=== PATIENT | male | born 1970 | race Two or more races ===

== ENCOUNTER 2017-04-20 05:07 | Inpatient (IN) | payer OTHER ==
[~2017-04-20] VITALS: Ht 157.5 cm; Wt 99.8 kg
[2017-04-20] VITALS (17 sets, daily range): BP systolic 117–143; BP diastolic 78–94
[~2017-04-20 05:07] MED LIST: TRAMADOL HCL50 MG ORAL
[2017-04-20] MEDS ORDERED: Thrombin 5000 units TOPIC ONE (06:26)
[2017-04-20] MEDS ORDERED: Bacitracin 50000 Units Vial ONE (06:27)
[2017-04-20] MEDS ORDERED: Vancomycin 1gm inj IVPB ONE (06:27)
[2017-04-20] MEDS ORDERED: Bupivacaine 0.5% Inj 30 ml vial INJ ONE (06:27)
[2017-04-20] MEDS ORDERED: Surgicel 4in x 8in TOPIC ONE (06:28)
[2017-04-20] MEDS ORDERED: fentaNYL 100 mcg/2 mL IV ONE (07:00)
[2017-04-20] MEDS ORDERED: NS Irrig 1000ml ONE (07:00)
[2017-04-20] MEDS ORDERED: Propofol 200mg/20ml IV ONE (07:00)
[2017-04-20] MEDS ORDERED: Succinylcholine 20mg/ml 10ml vial ONE (07:00)
[2017-04-20] MEDS ORDERED: LR 1000ml ONE (07:00)
[2017-04-20] MEDS ORDERED: ceFAZolin sod 2 GM in D5W 110 ML IVPB ONE (07:00)
[2017-04-20] MEDS ORDERED: Sterile Water Irrig 1000ml IRRIG ONE (07:00)
[2017-04-20] MEDS ORDERED: Nimbex 2mg/ml Inj 10ML IVP ONE (07:00)
[2017-04-20] MEDS ORDERED: Midazolam 2mg/2ml Inj ONE (07:00)
--- NOTE | 2017-04-20 07:16 | Pre-Procedure Note/Attestation ---
Pre-Procedure Note/Attestation Complete Prior to Procedure Planned Procedure: not applicable Procedure Narrative: Cervical 56 Artificial disc replacement Cervical 67 Anterior cervical discectomy and fusion Indications for Procedure Pre-Operative Diagnosis: Cervical herniation of 56,67 Attestation I attest that I discussed the nature of the procedure; its benefits; risks and complications; and alternatives (and the risks and benefits of such alternatives ), prior to the procedure, with the patient (or the patient's legal health and safety representative). I attest that, if there was a reasonable possibility of needing a blood transfusion, the patient (or the patient's legal health and safety representative) was given the [facility] standardized written summary, pursuant to the [place] Blood Safety Act ([place] Health and Safety Code # 1645, as amended). I attest that I re-evaluated the patient just prior to the surgery and that there has been no change in the patient's H&P, except as documented below: SHEYLA LINK Apr 20, 2017 07:16
[2017-04-20] MEDS ORDERED: NS w/KCl 20mEq 1,000 ML IV SCH (07:17)
--- NOTE | 2017-04-20 07:17 | Brief Operative Note ---
Immediate Post Operative Note Operative Note Chief Complaint: Neck pain and right sided radiculopathy Pre-op Diagnosis: Cervical herniation of 56,67 Procedure: Unable to obtain intubation as a result of swelling , and multiple attempts case will be rescheduled with fiberoptic intubation Post-op Diagnosis: same as pre-op Findings: consistent w/pre-op dx studies, other - Unable to obtain intubation as a result of swelling , and multiple attempts case will be rescheduled with fiberoptic intubation Surgeon: Concepcion Supervisor Canvas Products: Elenita Anesthesiologist: Danii Anesthesia: general Specimen: none Complications: none Condition: stable Fluids: IV Estimated Blood Loss: minimal Drains: none Implant(s) used?: SHEYLA Byrd Apr 20, 2017 07:17
[2017-04-20] MEDS ORDERED: HYDROmorphone 1mg/ml Carpuject IVP PRN (07:30)
[2017-04-20] MEDS ORDERED: Norco 5mg/325mg tab ORAL PRN ×2 (07:30→13:30)
[2017-04-20] MEDS ORDERED: Milk of Magnesia 30ml Ud ORAL PRN (07:30)
[2017-04-20] MEDS ORDERED: HYDROcodone/Acetamin 7.5/325 tab ORAL PRN ×2 (07:30)
[2017-04-20] MEDS ORDERED: Naloxone 0.4mg/ml Inj IVP PRN (07:30)
[2017-04-20] MEDS ORDERED: HYDROmorphone 1mg/ml Carpuject SUBQ PRN ×2 (07:30→13:30)
[2017-04-20] MEDS ORDERED: Chloraseptic Spray 20mL Bottle ORAL PRN (07:30)
[2017-04-20] MEDS ORDERED: Docusate 100mg cap ORAL SCH (09:00)
--- NOTE | 2017-04-20 09:04 | Anethesia Preoperative Eval ---
Anesthesia Pre-op PMH/ROS General Date of Evaluation: Apr 20, 2017 Time of Evaluation: 06:55 Anesthesiologist: Trista ASA Score: ASA 3 Mallampati Score Class I : Soft palate, uvula, fauces, pillars visible Class II: Soft palate, uvula, fauces visible Class III: Soft palate, base of uvula visible Class IV: Only hard plate visible Mallampati Classification: Class IV Surgeon: Concepcion Diagnosis: Cervical radiculopathy Surgical Procedure: ACDF Anesthesia History: none Social History: smoking - h/o Family History: no anesthesia problems Allergies: Coded Allergies: Shrimp (Verified Allergy, Intermediate, 04/19/17) SKIN RASH Uncoded Allergies: CRABS (Allergy, Intermediate, 04/19/17) SKIN RASH Past Medical History Cardiovascular: Reports: HTN - borderline, Denies: CAD, MA, valve dz, arrhythmia, other Pulmonary: Reports: IFEANYI, Denies: asthma, COPD, other Gastrointestinal/Genitourinary: Reports: GERD, Denies: CRI, ESRD, other Neurologic/Psychiatric: Reports: other - chronic pain, Denies: dementia, CVA, depression/anxiety, TIA Endocrine: Denies: DM, hypothyroidism, steroids, other HEENT: Denies: cataract (L), cataract (R), glaucoma, [place] (L), [place] (R), other Hematology/Immune: Denies: anemia, DVT, bleeding disorder, other Musculoskeletal/Integumentary: Denies: OA, RA, DJD, DDD, edema, other Other: obesity PMH Narrative: as above PSxH Narrative: lumbar spine, some procedure on anterior chest wall and neck resulted in severe keloid scarring. Anesthesia Pre-op Phys. Exam Physician Exam Last Vital Signs Date Time Temp Pulse Resp B/P (MAP) Pulse Ox O2 Delivery O2 Flow Rate FiO2 04/20/17 08:55 85 19 125/87 95 Room Air 04/20/17 08:35 6.0 04/20/17 08:06 98.2 Constitutional: NAD Neurologic: CN 2-12 intact Cardiovascular: RRR, no M/R/G Respiratory: CTA Gastrointestinal: S/NT/ND Airway Exam Mallampati Score: Class IV - only hard palate MO: limited - extrimely limited one finger Neck: short stiff ROM: limited Teeth: missing Dentures: no upper, no lower Anesthesia Pre-op A/P Labs see chart Studies Pre-op Studies: EKG - NSR, CXR - WNL, echo - EF 55-60%, PFTS - Normal Risk Assessment & Plan Assessment: ASA 3 Plan: GA with ETT possibility of difficult airways, neuromonitoring Status Change Before Surgery: No Pre-Antibiotics Drug: Ancef 2gr. Given Within 1 Hr of Incision: Yes Time Given: 07:25 RAMYA VAUGHAN M.D. Apr 20, 2017 09:04
--- NOTE | 2017-04-20 11:19 | Immediate Post-Op Evaluation ---
Immediate Post-Op Evalulation Immediate Post-Op Evalulation Procedure: Planned ACDF Date of Evaluation: Apr 20, 2017 Time of Evaluation: 08:10 IV Fluids: 1000 Blood Products: none Estimated Blood Loss: min Urinary Output: none Blood Pressure Systolic: 118 Blood Pressure Diastolic: 64 Pulse Rate: 86 Respiratory Rate: 22 O2 Sat by Pulse Oximetry: 98 Temperature (Fahrenheit): 97.6 Pain Score (1-10): 2 Nausea: No Vomiting: No Complications Postinduction cancelation of surgery difficult airway hard to ventilate cannot intubate situation.Unable to ventilate with oral airway glydescope with Sucs paralysis grade 4 view epiglottis only attempt to place a tube no CO2 return esophageal, tube out ventilation with 32 nasal airway successful but with significant nasal bleeding saturation stable bleeding stopped with nasal packing and phenyephrin. Patient returned to spontaneous breathing, discussed with surgeon decision - unsafe to proceed case canceled for the day. Patient to PACU in stable condition. Patient Status: reacts, patent, none Hydration Status: adequate RAMYA VAUGHAN M.D. Apr 20, 2017 11:19
--- NOTE | 2017-04-20 11:21 | 48 Hour Post Anesthesia Eval ---
Post Anesthesia Evaluation Procedure: Planned ACDF Date of Evaluation: Apr 20, 2017 Time of Evaluation: 11:20 Blood Pressure Systolic: 128 0: 76 Pulse Rate: 74 Respiratory Rate: 22 Temperature (Fahrenheit): 97.6 O2 Sat by Pulse Oximetry: 98 Airway: patent Nausea: No Vomiting: No Pain Intensity: 1 Hydration Status: adequate Cardiopulmonary Status: stable Mental Status/LOC: patient returned to baseline Follow-up Care/Observations: n/a Post-Anesthesia Complications: see immediate postop evaluation Follow-up care needed: ready to discharge RAMYA VAUGHAN M.D. Apr 20, 2017 11:21
[2017-04-20] MEDS ORDERED: Dexamethasone 4mg/ml vial IVP SCH (12:00)
--- NOTE | 2017-04-20 12:32 | Operative Note - Dictated ---
DATE OF OPERATION: 04/20/2017 SURGEON: German Javier M.D. PREOPERATIVE DIAGNOSIS: C5-C6, C6-C7 disk herniation persistent radiculopathy, right-sided arm pain. DESCRIPTION OF PROCEDURE: This is a 46-year-old male who has herniations and radiculopathy stemming from a recent injury. Today, he was brought to [facility] where we attempted intubation of the cervical spine, however, due to his significant swelling, the procedure had to be aborted and it will be rescheduled for another day. Details from anesthesia standpoint will be documented in the anesthesiologist's note. At this point, his rescheduled surgery will have to be performed with fiberoptic intubation the anesthesia details which will be documented in the anesthesiologist's note. German Javier M.D. DR: Devonte JOB#: [id number] CC: MAGDALENA
[2017-04-20] MEDS ORDERED: Tylenol #3 tab (300mg/30mg) ORAL PRN (13:30)
[2017-04-20] MEDS ORDERED: D5 1/2NS 1,000 ML IV SCH (13:30)
[2017-04-20] MEDS ORDERED: ceFAZolin sod 1 GM in D5W 55 ML IV SCH (14:00)
[2017-04-27] MEDS ORDERED: Lidocaine 4% Amp INJ ONE (20:00)
[2017-04-30] VITALS (16 sets, daily range): BP systolic 119–152; BP diastolic 74–94
[2017-04-30] MEDS ORDERED: MEDROL DOSEPAK4 MG ORAL (06:03)
[2017-04-30] MEDS ORDERED: Lidocaine 2% 20mg/ml/EPI 0.01mg/ml 20ml ONE (06:53)
[2017-04-30] MEDS ORDERED: Cocaine HCl 4% 4ml vial TOPIC ONE (06:53)
[2017-04-30] MEDS ORDERED: Lidocaine 2% MPF 5ml Vial INJ ONE (06:57)
[2017-04-30] MEDS ORDERED: Vancomycin 1gm inj IVPB ONE (06:57)
[2017-04-30] MEDS ORDERED: Thrombin 5000 units TOPIC ONE ×2 (06:57→09:24)
[2017-04-30] MEDS ORDERED: Surgicel 4in x 8in TOPIC ONE (06:57)
[2017-04-30] MEDS ORDERED: Bacitracin 50000 Units Vial ONE (06:58)
[2017-04-30] MEDS ORDERED: NS Irrig 1000ml ONE (07:00)
[2017-04-30] MEDS ORDERED: ceFAZolin sod 1 GM in D5W 55 ML IVPB SCH (07:00)
[2017-04-30] MEDS ORDERED: Dexamethasone 4mg/ml vial ONE (07:00)
[2017-04-30] MEDS ORDERED: Sterile Water Irrig 1000ml IRRIG ONE (07:00)
[2017-04-30] MEDS ORDERED: Glycopyrrolate 0.2mg/ml 1ml Vial ONE (07:00)
[2017-04-30] MEDS ORDERED: Zemuron 50mg/5ml Inj IV ONE (07:00)
[2017-04-30] MEDS ORDERED: LR 1000ml ONE (07:00)
[2017-04-30] MEDS ORDERED: Neostigmine 1mg/ml 10ml Inj ONE (07:00)
[2017-04-30] MEDS ORDERED: Propofol 1,000mg/ 100ml btl IV ONE (07:00)
[2017-04-30] MEDS ORDERED: Lidocaine 1% Plain 30 ml INJ ONE (07:00)
[2017-04-30] MEDS ORDERED: fentaNYL 100 mcg/2 mL IV ONE (07:00)
--- NOTE | 2017-04-30 07:08 | Pre-Procedure Note/Attestation ---
Pre-Procedure Note/Attestation Complete Prior to Procedure Planned Procedure: not applicable Procedure Narrative: Cervical 56 artificial disc replacement, cervical 67 anterior cervical discectomy and fusion Indications for Procedure Pre-Operative Diagnosis: Cervical herniation of 56,67 Attestation I attest that I discussed the nature of the procedure; its benefits; risks and complications; and alternatives (and the risks and benefits of such alternatives ), prior to the procedure, with the patient (or the patient's legal apprenticeship representative). I attest that, if there was a reasonable possibility of needing a blood transfusion, the patient (or the patient's legal apprenticeship representative) was given the [place] [facility] standardized written summary, pursuant to the [place] Blood Safety Act ([place] Health and Safety Code # 1645, as amended). I attest that I re-evaluated the patient just prior to the surgery and that there has been no change in the patient's H&P, except as documented below: SHEYLA LINK Apr 30, 2017 07:08
--- NOTE | 2017-04-30 07:10 | Brief Operative Note ---
Immediate Post Operative Note Operative Note Chief Complaint: bilateral arm pain right worse and neck pain Pre-op Diagnosis: Cervical herniation of 56,67 Procedure: Cervical 56 artificial disc replacement, cervical 67 anterior cervical discectomy and fusion Post-op Diagnosis: same as pre-op Findings: consistent w/pre-op dx studies Surgeon: Concepcion Psych Specialist: Elenita Anesthesiologist: Natacha Anesthesia: general Specimen: none Complications: none Condition: stable Estimated Blood Loss: minimal Implant(s) used?: Yes - Prodisc C sz 5, nuvasive interlock sz 6 SHEYLA LINK Apr 30, 2017 07:09
[2017-04-30] MEDS ORDERED: fentaNYL 100 mcg/2 mL IV PRN (07:15)
[2017-04-30] MEDS ORDERED: DiphenhydrAMINE 50mg/ml Inj IVP PRN (07:15)
[2017-04-30] MEDS ORDERED: Atropine Inj 1mg/10ml Syr IV PRN (07:15)
[2017-04-30] MEDS ORDERED: Hydromorphone 0.5mg/0.5ml inj IVP PRN (07:15)
[2017-04-30] MEDS ORDERED: LR 1000ml 1,000 ML IVLG SCH (07:15)
[2017-04-30] MEDS ORDERED: oxyCODONE HCL/Acetaminophen 5/325mg ORAL PRN (07:15)
[2017-04-30] MEDS ORDERED: LORazepam Inj 2mg/ml 1ml IV PRN (07:15)
[2017-04-30] MEDS ORDERED: Ketorolac 60mg Inj IV PRN (07:15)
[2017-04-30] MEDS ORDERED: Labetalol 5mg/ml 20ml vial IV PRN (07:15)
[2017-04-30] MEDS ORDERED: HYDROcodone/Acetamin 7.5/325 tab ORAL PRN ×3 (07:15)
[2017-04-30] MEDS ORDERED: HYDROmorphone 1mg/ml Carpuject IVP PRN (07:15)
[2017-04-30] MEDS ORDERED: Chloraseptic Spray 20mL Bottle ORAL PRN (07:15)
[2017-04-30] MEDS ORDERED: Norco 5mg/325mg tab ORAL PRN ×2 (07:15)
[2017-04-30] MEDS ORDERED: Ketorolac 30mg Inj IV PRN (07:15)
[2017-04-30] MEDS ORDERED: Midazolam 2mg/2ml Inj IVP PRN (07:15)
[2017-04-30] MEDS ORDERED: Naloxone 0.4mg/ml Inj IVP PRN (07:15)
[2017-04-30] MEDS ORDERED: HYDROmorphone 1mg/ml Carpuject SUBQ PRN (07:15)
[2017-04-30] MEDS ORDERED: Milk of Magnesia 30ml Ud ORAL PRN (07:15)
[2017-04-30] MEDS ORDERED: Acetaminophen (Non formulary) 100 ML IV ONE (08:00)
[2017-04-30] MEDS ORDERED: DEXMEDETOMIDINE IV ONE (09:00)
--- NOTE | 2017-04-30 09:07 | Anethesia Preoperative Eval ---
Anesthesia Pre-op PMH/ROS General Date of Evaluation: Apr 30, 2017 Time of Evaluation: 07:06 Anesthesiologist: Natacha ASA Score: ASA 3 Mallampati Score Class I : Soft palate, uvula, fauces, pillars visible Class II: Soft palate, uvula, fauces visible Class III: Soft palate, base of uvula visible Class IV: Only hard plate visible Mallampati Classification: Class IV Surgeon: Concepcion Diagnosis: Neck Pain Surgical Procedure: ACDF C6-7, ADR C5-6 Anesthesia History: none Social History: current smoker Family History: no anesthesia problems Allergies: Coded Allergies: Shrimp (Verified Allergy, Intermediate, 04/19/17) SKIN RASH Uncoded Allergies: CRABS (Allergy, Intermediate, 04/19/17) SKIN RASH Medications: see eMAR Past Medical History Cardiovascular: Reports: HTN Pulmonary: Reports: IFEANYI Gastrointestinal/Genitourinary: Reports: GERD Neurologic/Psychiatric: Reports: other - Chronic Pain Other: obesity - BMI 42 Anesthesia Pre-op Phys. Exam Physician Exam Last Vital Signs Date Time Temp Pulse Resp B/P (MAP) Pulse Ox O2 Delivery O2 Flow Rate FiO2 04/30/17 06:34 97.5 78 20 125/84 96 Room Air Constitutional: NAD Neurologic: CN 2-12 intact Cardiovascular: RRR Respiratory: CTA Gastrointestinal: S/NT/ND Airway Exam Mallampati Score: Class IV - only hard palate MO: limited ROM: limited Teeth: missing, intact Anesthesia Pre-op A/P Risk Assessment & Plan Assessment: ASA 3 Plan: GA, BIS, GlideScope Status Change Before Surgery: No Pre-Antibiotics Dru Grams Ancef IV Given Within 1 Hr of Incision: Yes Time Given: 08:36 Chemo Manzano MD Apr 30, 2017 09:07
--- NOTE | 2017-04-30 09:14 | Immediate Post-Op Evaluation ---
Immediate Post-Op Evalulation Immediate Post-Op Evalulation Procedure: ACDF C6-7, ADR C5-6 Date of Evaluation: Apr 30, 2017 Time of Evaluation: 11:15 IV Fluids: 2000 LR Blood Products: 0 Estimated Blood Loss: 30 Urinary Output: 0 Blood Pressure Systolic: 138 Blood Pressure Diastolic: 88 Pulse Rate: 92 Respiratory Rate: 18 O2 Sat by Pulse Oximetry: 100 Temperature (Fahrenheit): 97.4 Pain Score (1-10): 3 Nausea: No Vomiting: No Complications 0 Patient Status: awake, reacts, patent, extubated, none Hydration Status: adequate Dru Grams Ancef IV Given Within 1 Hr of Incision: Yes Time Given: 08:26 Chemo Manzano MD Apr 30, 2017 09:14
[2017-04-30] MEDS ORDERED: Kenalog-10 5ml Inj ONE (10:25)
--- NOTE | 2017-04-30 11:31 | Diagnostic Imaging Report ---
Indication: Neck pain, right upper extremity pain Technique: Intraoperative images Comparison: none Findings: Localizer image demonstrates a surgical tool projecting anterior to the C5-6 disc. Subsequent images demonstrate placement of a disc prosthesis at C5-6 and anterior fusion at C6-7 Impression: Intraoperative images, as described
--- NOTE | 2017-04-30 14:29 | Consultation ---
History of Present Illness General Date patient seen: Apr 30, 2017 Time patient seen: 14:29 Chief Complaint: intractable neck pain w/ R>L arm pain Referring physician: Dr. Javier Reason for Consultation: med mgmt Present Illness HPI 46y/o male with intractable neck pain w/ R>L arm pain 2/2 cervical disc herniation who presents s/p cervical 56 artificial disc replacement, cervical 67 anterior cervical discectomy and fusion earlier today. No periop or postop complications. Postop pain appears well-controlled. Denies f/c, n/v, d/c, chest pain, SOB. Allergies: Coded Allergies: Shrimp (Verified Allergy, Intermediate, 04/19/17) SKIN RASH Uncoded Allergies: CRABS (Allergy, Intermediate, 04/19/17) SKIN RASH Medication History Scheduled PRN Hydrocodone Bit/Acetaminophen 10-325* ([place] 10-325*), 1 TAB ORAL Q8HR PRN for For Pain, (Reported) Tramadol Hcl* (Ultram*), 50 MG ORAL DA PRN for For Pain, (Reported) Patient History History Provided By: Patient, Family Member, Medical Record, PMD Healthcare decision maker shane(sister) Resuscitation status Full Code Advanced Directive on File No Past Medical/Surgical History Past Medical/Surgical History: (1) HNP (herniated nucleus pulposus), cervical Family History Family History: (1) No significant family history Social History Social History: (1) No significant social history Review of Systems Constitutional: Reports: no symptoms Eye: Reports: no symptoms ENT: Reports: no symptoms Respiratory: Reports: no symptoms Cardiovascular: Reports: no symptoms Gastrointestinal: Reports: no symptoms Genitourinary: Reports: no symptoms Musculoskeletal: Reports: joint pain, muscle pain Skin: Reports: no symptoms Psychiatric: Reports: no symptoms Neurological: Reports: no symptoms Endocrine: Reports: no symptoms Hematologic/Lymphatic: Reports: no symptoms Physical Exam Physical Exam Narrative General: alert, cooperative, no distress, appears stated age Head: normocephalic, without obvious abnormality, atraumatic Eyes: conjunctivae/corneas clear. PERRL, EOM's intact Throat: lips, mucosa, and tongue normal. MMM Neck: supple, symmetrical, trachea midline, and no JVD Lungs: clear to auscultation bilaterally Heart: regular rate and rhythm, S1, S2 normal, no murmur, click, rub or gallop Abdomen: soft, non-tender, non-distended, bowel sounds normal; no masses or organomegaly Extremities: extremities normal, atraumatic, no cyanosis or edema Pulses: 2+ and symmetric Skin: skin color, texture, turgor normal; dressing c/d/i Neurologic: grossly normal, no focal deficits Last 24 Hour Vital Signs Date Time Temp Pulse Resp B/P (MAP) Pulse Ox O2 Delivery O2 Flow Rate FiO2 04/30/17 12:40 97.0 72 16 137/74 99 Nasal Cannula 3.0 04/30/17 12:30 72 13 130/80 99 Nasal Cannula 3.0 04/30/17 12:20 80 15 132/81 98 Nasal Cannula 3.0 04/30/17 12:15 84 16 130/87 98 Nasal Cannula 3.0 04/30/17 12:10 73 13 131/83 98 Nasal Cannula 3.0 04/30/17 12:00 74 14 139/87 99 Nasal Cannula 3.0 04/30/17 11:55 75 16 141/88 99 Nasal Cannula 3.0 04/30/17 11:45 76 20 139/89 97 Nasal Cannula 3.0 04/30/17 11:30 73 20 146/88 97 Nasal Cannula 3.0 04/30/17 11:14 84 20 141/90 97 Simple Mask 8.0 04/30/17 11:12 92 18 100 04/30/17 11:09 93 20 147/87 97 Simple Mask 8.0 04/30/17 11:04 97.4 97 20 152/94 97 Simple Mask 8.0 04/30/17 06:34 97.5 78 20 125/84 96 Room Air Height (Feet): 5 Height (Inches): 2.00 Weight (Pounds): 220 Medications Current Medications Medications (Trade) Dose Ordered Sig/[place] Route PRN Reason Start Time Stop Time Status Last Admin Dose Admin Acetaminophen (Tylenol) 650 mg Q4H PRN ORAL headache or temp>101 04/30/17 07:15 05/30/17 07:14 Acetaminophen/ Hydrocodone Bitart ([place] 5/325) 1 tab Q3H PRN ORAL pain score 1-3 04/30/17 07:15 05/07/17 07:14 Acetaminophen/ Hydrocodone Bitart ([place] 7.5/325) 1 tab Q3H PRN ORAL pain score 4-6 04/30/17 07:15 05/07/17 07:14 Acetaminophen/ Hydrocodone Bitart ([place] 7.5/325) 2 tab Q3H PRN ORAL pain scale 7-10 04/30/17 07:15 05/07/17 07:14 Carisoprodol (Soma) 350 mg TIDPRN PRN ORAL SPASM 04/30/17 07:15 05/30/17 07:14 Cefazolin Sodium 1 gm/Sodium Chloride 55 ml @ 110 mls/hr Q8H IV 04/30/17 16:30 05/01/17 08:59 Cetylpyridinium Chloride (Cepacol) 1 lozg Q2H PRN KALIN To Patient Comfort 04/30/17 07:15 05/30/17 07:14 Dexamethasone Sodium Phosphate (Decadron 4mg/ml vial) 4 mg Q6H IVP 04/30/17 15:00 05/01/17 09:01 Docusate Sodium (Colace) 100 mg TWICE A DAY ORAL 04/30/17 18:00 05/30/17 17:59 Hydromorphone HCl (Dilaudid) 1 mg Q2H PRN IVP Breakthrough Pain 04/30/17 07:15 05/07/17 07:14 Hydromorphone HCl (Dilaudid) 1 mg Q4H PRN SUBQ Mild Pain (Pain Scale 1-3) 04/30/17 07:15 05/07/17 07:14 Hydromorphone HCl (Dilaudid) 2 mg Q3H PRN SUBQ Severe Pain (Pain Scale 7-10) 04/30/17 07:15 05/07/17 07:14 Hydromorphone HCl (Dilaudid) 2 mg Q4H PRN SUBQ Moderate Pain (Pain Scale 4-6) 04/30/17 07:15 05/07/17 07:14 Magnesium Hydroxide (Mom) 30 ml QIDPRN PRN ORAL Constipation 04/30/17 07:15 05/30/17 07:14 Naloxone HCl (Narcan) 0.1 mg PRN PRN IVP RR<12/min, pt unarousable 04/30/17 07:15 05/30/17 07:14 Ondansetron HCl (Zofran) 4 mg Q6H PRN IVP Nausea & Vomiting 04/30/17 07:15 05/30/17 07:14 Phenol/Menthol (Chloraseptic) 1 spray Q3H PRN ORAL To Patient Comfort 04/30/17 07:15 05/30/17 07:14 Prochlorperazine (Compazine) 10 mg Q6H PRN IVP Nausea & Vomiting 04/30/17 07:15 05/30/17 07:14 Sodium Chloride 1,000 ml @ 100 mls/hr Q10H IV 04/30/17 15:00 05/30/17 14:59 Temazepam (Restoril) 15 mg HSPRN PRN ORAL Insomnia 04/30/17 07:15 05/07/17 07:14 Assessment/Plan Problem List: (1) HNP (herniated nucleus pulposus), cervical ICD Codes: M50.20 - Other cervical disc displacement, unspecified cervical region SNOMED: [id number] Status: stable Assessment/Plan Appreciate surgery rec's s/p Cervical 56 artificial disc replacement, cervical 67 anterior cervical discectomy and fusion on 04/30/17 Post operative recommendations include: - encourage mobilization/ambulation - encourage incentive spirometry to optimize pulmonary hygiene - DVT/GI prophylaxis as appropriate - PT/OT - pain control, supportive care, bowel regimen - DC planning D/w pt, RN, SW/CM, surgery regarding mgmt and dispo Harshad Mulligan M.D. Apr 30, 2017 14:29
[2017-04-30] MEDS: Dexamethasone 4mg/ml vial IVP SCH ×2 (15:20→20:52)
[2017-04-30] MEDS: NS w/KCl 20mEq 1,000 ML IV SCH (15:20)
[2017-04-30] MEDS: ceFAZolin sod 1 GM in NS 55 ML IV SCH (16:45)
[2017-04-30] MEDS: Docusate 100mg cap ORAL SCH (18:28)
--- NOTE | 2017-04-30 21:30 | Operative Note - Dictated ---
DATE OF OPERATION: 04/30/2017 SURGEON: German Javier M.D., orthopedic spine surgeon. PROTECTIVE SERVICE SPECIALIST: GT Watkins. FIRST LEVEL: PREOPERATIVE DIAGNOSES: 1. Intractable neck pain. 2. Radiculopathy. 3. Herniation, C5-C6.C67 4. Neural foraminal stenosis, C5-C6.C67 5. Stenosis. POSTOPERATIVE DIAGNOSES: 1. Intractable neck pain. 2. Radiculopathy. 3. Herniation, C5-C6.C67 4. Neural foraminal stenosis, C5-C6.C67 5. Stenosis. PROCEDURE PERFORMED: 1. Anterior cervical discectomy and artificial disc replacement of C5-C6 using a Synthes Prodisc-C 5 height. Anterior cervical discectomy and fusion of C6-C7 using NuVasive Interlock-C, size 6, a total of three 14 mm screws, with the insertion of 1 mL of allograft Osteocel bone. 2. Use of intraoperative microscope. 3. Motor-evoked potential monitoring. 4. Somatosensory-evoked potential monitoring. 5. Supervision and interpretation of fluoroscopy. COMPLICATIONS: None. ANESTHESIA: General. ESTIMATED BLOOD LOSS: Less than 100 mL. INDICATIONS FOR SURGERY: This patient is a 46-year-old male who has history of diagnoses as listed above. As a result of this, the patient sustained intractable neck pain, radiculopathy, herniation of C5-C6,C67 neural foraminal stenosis of C5-C6,C67 and stenosis. We tried a course of conservative management but despite this course, there was still a significant component of persistent, recalcitrant neck pain and arm pain. The MRI demonstrated significant neural foraminal compromise secondary to disc herniations at C5-C6, c67 We had a long discussion with Timo regarding the risks and benefits of surgery. Our discussion included but was not limited to nonoperative management, chiropractic management, another epidural steroid injection as well definitive management in the form of surgery. We recommended an anterior cervical discectomy and artificial disc replacement of C5-C6 and fusion of C67 as final definitive management. We reviewed the risks and benefits of surgery with the patient. Our discussion included a comprehensive review of the clinical issues and the nature of the clinical decision. We reviewed the alternatives, including doing nothing. The patient elected to proceed accordingly with anterior cervical discectomy and artificial disc replacement. We had a long discussion regarding the risks, alternatives, and benefits of surgery. Our description of the risks included a discussion in person as well as a signed consent which detailed all pertinent risks from the procedure itself. Briefly, our discussion included but was not limited to infection, bleeding, pseudarthrosis, spinal cord injury, neurovascular injury, dural tear, CSF leak, neuropathy, paralysis, permanent weakness/drop foot/drop arm, paresthesias, blindness, palsy, and weakness. The patient understood there may be a need for a revision surgery or additional procedures. Approach-related complications including dysphonia, dysphagia, blindness, permanent vocal cord and neural injury, hematoma, swallowing and breathing difficulty. Medical complications were reviewed including liver, kidney, shock, cardiopulmonary failure, anesthesia complications including , swelling, damage to the musculature, larynx/voice injury or loss, esophagus/throat, trachea, blood vessels and muscles/muscular sprain and lungs/pneumothorax during this surgical procedure; injury to deeper structures may be temporary or permanent. After this review of risks, the patient understood these and elected to proceed. A written and verbal consent was given. We discussed the pros and cons of all the alternatives. We discussed the uncertainties associated with the decision. Afterwards, I assessed the patient's understanding and explored their preferences. All questions were answered and no guarantees were given. Medical clearance was obtained prior to surgery. INTRAOPERATIVE FINDINGS: A broad-based disc herniation which was found posterior to a tear/rent in the posterior longitudinal ligament at C5-C6, causing a considerable amount of neural foraminal stenosis with significant encroachment on the neural foramina and spinal cord. DESCRIPTION OF PROCEDURE: Under the benefit of general endotracheal anesthesia and with the assistance of the entire operative team, the patient was moved from the [facility] onto the operative table in the supine position. The head was secured and carefully positioned appropriately. Bilateral arms were secured with GelPads and foam and all bony prominences were padded. For the bilateral lower extremities, SCD and WARNER hose were placed for DVT prophylaxis. A surgical timeout was called which corroborated our planned procedure of anterior cervical discectomy and artificial disc replacement. Preoperative antibiotics were administered within 30 minutes of the incision for antibiotic prophylaxis. Using lateral fluoroscopic radiography, the operative levels were delineated. Next, the wound was prepped and draped with chlorhexidine and sterile drapes. An incision was based on lateral fluoroscopy and we centered our incision at the C5-C6 interspace and next using a standard Trejo-Torres anterior-based approach, the incision was taken down through the skin and subcutaneous tissues until the vertebral bodies and their corresponding disc spaces were visualized. A needle was placed into the interspace to confirm placement of the operative interspace and we performed the remainder of procedure under microscopic visualization. Next, using a bipolar and Bovie cautery to ensure meticulous hemostasis, the longus colli was mobilized bilaterally and retractors were placed deep to the longus colli bilaterally to address retraction. Next, we turned our attention to the radical anterior discectomy. This was initially performed at C5-C6 first by using a 15 blade scalpel followed by narrow pituitaries and a Microsect 5-B curette was used to denude the endplate of all cartilaginous tissue. Next, using a NeoSystems AM8 drillbit, the vertebral endplates were denuded in a owbu-mo-pgnf and boxyc-he-anpei fashion, and ultimately the posterior uncinate joints bilaterally and posterior osteophytic lips and margins causing central and lateral impingement were carefully denuded until visualization of the posterior longitudinal ligament was possible. An endplate preparation was performed in the exact same fashion using an intervertebral park warden, sequential distraction was obtained throughout the disc space. We saw a tear/rent in the PLL and this was carefully mobilized and dissected using a Microsect 1-B curet until we visualized a broad-based disc herniation with compression of the spinal cord as well as neural foramina. This neural foraminal compression was carefully resected using a Kerrison-1 and Kerrison-2 rongeurs until complete decompression of the spinal cord was visualized and complete decompression of the neural foramina and nerve root therein as well as the axilla and lateral margin of the nerve root was visualized and subsequently completely decompressed. We next turned our attention towards trialing our implant within the disc space. We initially tried size 5 and the Prodisc-C spacer fit well in regard to depth and width. This implant was opened and prepared. Next under direct visualization, I confirmed excellent fit in respect to the anterior and posterior vertebral bodies, the uncinate joints and in regard to toggle. Once satisfied with this placement on serial AP and lateral fluoroscopy, I turned my attention towards cutting our roldan. These were cut in the bones using a reciprocating drill and afterwards all free fragments of bone were irrigated. Next, FloSeal was placed into the interspace and the implant was inserted using fluoroscopic guidance. Next, the Synthes Prodisc-C size 5 ADR was then carefully advanced and secured into the intervertebral space under direct visualization and with supervision of AP and lateral fluoroscopic views. SECOND LEVEL: PROCEDURE PERFORMED: 1. Anterior cervical discectomy and fusion of C6-C7 using NuVasive Interlock-C, size 6, a total of three 14 mm screws, with the insertion of 1 mL of allograft Osteocel bone. Next, we turned our attention to the radical anterior discectomy. This was initially performed at C6-C7 first by using a 15 blade scalpel followed by narrow pituitaries and a Microsect 5-B curette was used to denude the endplate of all cartilaginous tissue. Next, using a NeoSystems AM8 drillbit, the partial vertebrectomy was performed in a sdws-xx-sbpf and kxezo-ko-vlhhw fashion, and ultimately the posterior uncinate joints bilaterally and posterior osteophytic lips and margins causing central and lateral impingement were carefully denuded until visualization of the posterior longitudinal ligament was possible. An endplate preparation was performed in the exact same fashion using an intervertebral park warden, sequential distraction was obtained throughout the disc space. We saw a tear/rent in the PLL and this was carefully mobilized and dissected using a Microsect 1-B curette until we visualized a broad-based disc herniation with compression of the spinal cord as well as neural foramina . This neural foraminal compression was carefully resected using a Kerrison-1 and Kerrison-2 rongeurs until complete decompression of the spinal cord was visualized and complete decompression of the neural foramina and nerve root therein as well as the axilla and lateral margin of the nerve root was visualized and subsequently completely decompressed. The family was notified at one-hour intervals throughout the procedure to provide for consistent updates. We next turned our attention towards trialing our implant within the disc space. We initially tried size 5 and afterwards size 6 trial from the NuVasive system, which appeared to be appropriate under AP and lateral fluoroscopy as well as in terms of its height, depth, width, and lack of toggle. The PEEK (polyetheretherketone) interbody cages were then both packed with allograft bone from Osteocel and local autograft bone matrix. Next, these were then carefully advanced and secured into their intervertebral spaces under direct visualization and with supervision of AP and lateral fluoroscopic views. We next turned our attention towards plating. Plating was performed with PlayEarth Interlock-C plating system. A total of three screws, size 14 mm in length were inserted and confirmed under AP and lateral fluoroscopy and confirmed to be in excellent position. After a finger sweep, we confirmed removal of all sponges. The retractor was removed and we next turned our attention to meticulous hemostasis with FloSeal and bipolar cautery. After the sponge and needle count was again found to be correct with our second count, we next turned our attention to closure. The wound was again copiously irrigated with antibiotic impregnated saline. Closure consisted of 4-0 clear nylon for the platysma, and 6-0 clear nylon for the superficial skin. Final skin closure and dressings consisted of Dermabond. Prior to final closure, a final radiograph was obtained which demonstrated the hardware was intact with excellent position throughout. The patient tolerated the procedure well. The patient was carefully extubated after the conclusion of surgery. We discussed the findings of the surgery with the family upon completion of the case. At this point, the patient was transferred to the spine floor for further observation. German Javier M.D. DR: Devonte JOB#: [id number] CC: MAGDALENA
[2017-05-01] MEDS: NS w/KCl 20mEq 1,000 ML IV SCH ×2 (00:45→10:47)
[2017-05-01] MEDS: ceFAZolin sod 1 GM in NS 55 ML IV SCH ×2 (00:45→07:36)
[2017-05-01 00:57] VITALS: BP 111/70
[2017-05-01 04:45] VITALS: BP_SYST 120; BP_SYST 140; BP_DIAS 74; BP_DIAS 79
[2017-05-01] MEDS: Dexamethasone 4mg/ml vial IVP SCH ×2 (05:19→07:36)
[2017-05-01] MEDS: Docusate 100mg cap ORAL SCH (07:36)
[2017-05-01 08:00] VITALS: BP 132/85
[2017-05-01 12:00] VITALS: BP 117/76
[2017-05-01] MEDS ORDERED: NORCO 10-325 T1 EACH ORAL (13:03)
[2017-05-01] MEDS ORDERED: Tubing IV Secondary IV ONE (16:30)
[2017-05-01] MEDS ORDERED: NS Irrig 1000ml ONE (16:30)
--- NOTE | 2017-05-03 09:58 | General Progress Note ---
Assessment/Plan Problem List: (1) HNP (herniated nucleus pulposus), cervical ICD Codes: M50.20 - Other cervical disc displacement, unspecified cervical region SNOMED: 32676646 Status: stable Assessment/Plan Appreciate surgery rec's s/p Cervical 56 artificial disc replacement, cervical 67 anterior cervical discectomy and fusion on 04/30/17 Post operative recommendations include: - encourage mobilization/ambulation - encourage incentive spirometry to optimize pulmonary hygiene - DVT/GI prophylaxis as appropriate - PT/OT - pain control, supportive care, bowel regimen - DC planning, likely d/c today per surgery D/w pt, RN, SW/CM, surgery regarding mgmt and dispo Subjective Date patient seen: May 01, 2017 Time patient seen: 09:58 ROS Limited/Unobtainable: No Constitutional: Reports: no symptoms HEENT: Reports: no symptoms Cardiovascular: Reports: no symptoms Respiratory: Reports: no symptoms Gastrointestinal/Abdominal: Reports: no symptoms Genitourinary: Reports: no symptoms Neurologic/Psychiatric: Reports: no symptoms Endocrine: Reports: no symptoms Hematologic/Lymphatic: Reports: no symptoms Allergies: Coded Allergies: Shrimp (Verified Allergy, Intermediate, 04/19/17) SKIN RASH Uncoded Allergies: CRABS (Allergy, Intermediate, 04/19/17) SKIN RASH Subjective No acute o/n events POD#1 Pain controlled. Denies f/c, n/v, d/c, chest pain, SOB Objective Height (Feet): 5 Height (Inches): 2.00 Weight (Pounds): 220 Objective General: alert, cooperative, no distress, appears stated age Head: normocephalic, without obvious abnormality, atraumatic Eyes: conjunctivae/corneas clear. PERRL, EOM's intact Throat: lips, mucosa, and tongue normal. MMM Neck: supple, symmetrical, trachea midline, and no JVD Lungs: clear to auscultation bilaterally Heart: regular rate and rhythm, S1, S2 normal, no murmur, click, rub or gallop Abdomen: soft, non-tender, non-distended, bowel sounds normal; no masses or organomegaly Extremities: extremities normal, atraumatic, no cyanosis or edema Pulses: 2+ and symmetric Skin: skin color, texture, turgor normal; dressing c/d/i Neurologic: grossly normal, no focal deficits WiHarshad granados M.D. May 03, 2017 09:58
--- NOTE | 2017-05-03 12:27 | Discharge Summary ---
Discharge Summary Hospital Course Date of Admission Apr 30, 2017 at 05:23 Date of Discharge May 01, 2017 at 16:31 Admitting Diagnosis HPI Timo Dalton is a 46 year old male who was admitted on Apr 30, 2017 at 05:23 for Cervical Herniated Nucleus Pulposus Hospital Course [id number] Discharge Discharge Disposition Patient was discharged to home Discharge Diagnoses: Keli Sarabia NP May 03, 2017 12:27
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
== END 2017-05-01 16:31 | disposition home or self-care (01) | DRG 552 ==
LOC: SDSOVERFLO 05:07 → UNDOADMIN 05:07 → UNDODISIN 11:15 → SDSOVERFLO 04-30 05:23 → 3E 04-30 12:46
DX: M50.122 Cervical disc disorder at C5-C6 level with radiculopathy (principal); I10 Essential (primary) hypertension; K21.9 Gastro-esophageal reflux disease without esophagitis; Z53.8 Procedure and treatment not carried out for other reasons
CPT/HCPCS: 36415; 72040; 76001; 86850; 86900; 86901; 87081; 94003; 94150; J2250; J2405; J2710